=== PATIENT | female | born 1960 | race Caucasian/White ===

== ENCOUNTER 2019-02-08 15:13 | Inpatient (IN) | payer BC, OTHER ==
[~2019-02-08] VITALS: Ht 167.6 cm; Wt 83.0 kg
[~2019-02-08 15:13] MED LIST: AMBIEN5 MG PO; AMLODIPINE BESYL5 MG PO; ATENOLOL50 MG; ATENOLOL50 MG PO; DEXILANT60 MG PO; LIVALO1 MG; METFORMIN HCL500 M2 PO; NORVASC5 MG PO
[2019-02-08] MEDS ORDERED: ONDANSETRON HCL INJ 2MG/ML 2ML 2 MG/ML VIAL IV ONE ×2 (15:28→16:09)
[2019-02-08] MEDS ORDERED: KETOROLAC TROMETHAMINE 30 MG/ML VIAL IV ONE (15:28)
[2019-02-08] MEDS ORDERED: ACETAMINOPHEN 325 MG TAB PO ONE (15:28)
[2019-02-08] MEDS ORDERED: SODIUM CHLORIDE 0.9% 1000ML 1,000 ML IV STA (15:28)
[2019-02-08 15:44] LABS: BASOPHILS # (AUTO) 0.1 (0.0-0.1); BASOPHILS % 0.4 % (0.0-1.0); EOSINOPHILS # (AUTO) 0.1 (0.0-0.4); EOSINOPHILS % 0.3 % (0.0-6.0); HEMATOCRIT 42.6 % (34.2-44.1); LYMPHOCYTES # (AUTO) 1.5 (1.0-3.2); LYMPHOCYTES % 8.7 % (18.0-39.1); MEAN CORPUSCULAR HEMOGLOBIN 30.2 pg (28-32); MEAN CORPUSCULAR HGB CONC 32.9 g/dL (31-35); MEAN CORPUSCULAR VOLUME 91.8 fL (81-99); MONOCYTES # (AUTO) 2.2 (0.2-0.8); MONOCYTES % 12.8 % (4.4-11.3); NEUTROPHILS # (AUTO) 13.4 (2.1-6.9); NEUTROPHILS % 77.1 % (38.7-80.0); PLATELET COUNT 287 x10e3/uL (140-360); RED BLOOD COUNT 4.64 x10e6/uL (3.6-5.1); RED CELL DISTRIBUTION WIDTH 13.4 % (11.7-14.4)
[2019-02-08] MEDS ORDERED: LOSARTAN POTASS25 MG (15:52)
[2019-02-08] MEDS ORDERED: JANUVIA100 MG (15:52)
[2019-02-08 15:58] LABS: CLARITY,URINE SL CLOUDY (CLEAR); COLOR,URINE YELLOW (YELLOW); LEUKOCYTE ESTERASE ,URINE 2+ (NEGATIVE); NITRITE,URINE POSITIVE (NEGATIVE); PROTEIN,URINE DIPSTICK 1+ (NEGATIVE)
[2019-02-08 15:59] LABS: BACTERIA,URINE MODERATE /HPF; BILIRUBIN,URINE NEGATIVE (NEGATIVE); EPITHELIAL CELLS,URINE MODERATE /LPF; KETONES,URINE NEGATIVE (NEGATIVE); URINE UROBILINOGEN 0.2 mg/dL (0.2 - 1); WBC,URINE (MAN) 21-50 /HPF (0-5)
[2019-02-08] MEDS ORDERED: CEFTRIAXONE SOD 1 GM/NS 50 ML 50 ML IV ONE (16:00)
[2019-02-08 16:06] LABS: ALANINE AMINOTRANSFERASE 29 IU/L (0-55); ALBUMIN 4.1 g/dL (3.5-5.0); ALKALINE PHOSPHATASE 104 IU/L (40-150); ANION GAP 15.3 mmol/L (8-16); BLOOD UREA NITROGEN 15 mg/dL (7-26); BUN/CREATININE RATIO 18 (6-25); CALCIUM 9.5 mg/dL (8.4-10.2); CARBON DIOXIDE 26 mmol/L (22-29); CHLORIDE 101 mmol/L (98-107); CREATININE, SERUM 0.85 mg/dL (0.57-1.11); EST GLOMERULAR FILTRATION RATE > 60 ML/MIN (60-); GLUCOSE 150 mg/dL (74-118); POTASSIUM 3.3 mmol/L (3.5-5.1); SODIUM 139 mmol/L (136-145)
[2019-02-08] MEDS ORDERED: MORPHINE SULFATE INJ 4 MG/ML INJ 1ML IV ONE (16:09)
[2019-02-08] MEDS ORDERED: MORPHINE SULFATE 2 MG/ML SYR 1ML IV PRN (16:15)
[2019-02-08] MEDS ORDERED: ACETAMINOPHEN 325 MG TAB PO PRN (17:00)
[2019-02-08] MEDS ORDERED: POTASSIUM CHLORIDE 20 MEQ TAB CR PO NR (17:00)
[2019-02-08 17:13] VITALS: BP 142/61
--- NOTE | 2019-02-08 17:22 | NUR ---
Recvd patient from ER. AAOx3, not in any distress, up in bed, call light in reach
--- NOTE | 2019-02-08 17:30 | Diagnostic Imaging Report ---
CT of the abdomen and pelvis, without contrast, 02/08/2019. History: Left flank pain. Comparison: None available. Technique: Multidetector CT scanning of the abdomen and pelvis was performed from the level of the lung bases to the inferior pubic rami without intravenous or oral contrast. Coronal and sagittal multiplanar reformations were obtained. RADIATION DOSE: Total DLP: 593 mGy*cm Dose modulation, iterative reconstruction, and/or weight based adjustment of the mA/kV was utilized to reduce the radiation dose to as low as reasonably achievable. Discussion: Examination is limited without contrast. Lung bases: There is bibasilar dependent atelectasis. Abdomen: Multiple small 2 to 6 mm calcifications are present in both kidneys. There is no hydronephrosis on the right. There is mild left hydronephrosis and dilatation of the ureter down to the pelvis where a 6 mm stone is present in the distal left ureter. Multiple oval hypodense lesions are present within both kidneys, most measuring water density, with a 4.9 cm exophytic lesion arising from the lateral aspect of the left kidney which measures 16 Hounsfield units in density. There is diffuse low-density of the liver with focal fatty sparing adjacent to the gallbladder. The gallbladder, biliary tree, spleen, pancreas, and adrenal glands are unremarkable. The abdominal aorta is within normal limits. There is no bowel dilatation. Appendectomy clips are present. There is no evidence of adenopathy or free fluid. Pelvis: The bladder is unremarkable. The uterus and adnexa are absent. There is no evidence of free fluid or adenopathy. Bones and soft tissues: Degenerative changes are present throughout the lumbar spine without evidence of lytic or sclerotic lesion. IMPRESSION: 1. 6 mm distal left ureteral stone causing mild left hydronephrosis. Multiple additional small stones are present in both kidneys. No obstruction seen on the right. 2. Multiple bilateral renal cysts with a large exophytic hyperdense cyst on the left. This may be further evaluated with renal ultrasound. 3. Diffuse fatty infiltration of the liver. 4. Status post hysterectomy. Signed by: Issa Mccord on 02/08/2019 5:27 PM
[2019-02-08] MEDS ORDERED: PROPOFOL IV EMULSION 10 MG/ML 20 ML VIAL ONE (17:54)
[2019-02-08] MEDS ORDERED: ONDANSETRON HCL INJ 2MG/ML 2ML 2 MG/ML VIAL ONE (17:54)
[2019-02-08] MEDS ORDERED: SEVOFLURANE INHAL SOLN 250 ML PEN BTL ONE (17:54)
[2019-02-08] MEDS ORDERED: KETOROLAC TROMETHAMINE 30 MG/ML VIAL ONE (17:54)
[2019-02-08] MEDS ORDERED: LIDOCAINE HCL 2% LOCAL INJ 5 ML SDV VIAL INJ ONE (17:54)
[2019-02-08] MEDS ORDERED: DEXAMETHASONE SOD PHOS INJ 4 MG/ML VIAL ONE (17:54)
[2019-02-08] MEDS ORDERED: ACETAMINOPHEN 1000 MG/100 ML IV ONE (17:54)
[2019-02-08 18:51] VITALS: BP 142/61
[2019-02-08] MEDS ORDERED: SODIUM CHLORIDE 0.9% 1000ML 1,000 ML ONE (19:01)
--- NOTE | 2019-02-08 19:05 | NUR ---
RECEIVED PATIENT. PATIENT IS AAOX3, PATIENT IS RESTING IN BED. RESPIRATIONS EVEN AND UNLABORED. NO ACUTE DISTRESS NOTED AT THIS TIME. CALL LIGHT WITHIN REACH. INSTRUCT TO CALL FOR ASSISTANCE. BED LOW/LOCKED. SIDE RAILS UPX2. CONTINUE TO MONITOR CLOSELY.
--- NOTE | 2019-02-08 19:09 | NUR ---
Spoke with Dr Yarelis Cedillo ,did read back CT Result, new order recvd to keep patient NPO after mid night, IV fluids NS @100, Urine culture.
[2019-02-08] MEDS: SODIUM CHLORIDE 0.9% 1000ML 1,000 ML IV SCH (19:22)
[2019-02-08 20:00] VITALS: BP 120/67
[2019-02-08] MEDS: CIPROFLOXACIN 400 MG/D5W 200ML 200 ML IV SCH (21:06)
--- NOTE | 2019-02-08 21:15 | NUR ---
DR CRUZ SEE PATIENT AT BED SIDE. NEW ORDER TO OBTAIN CONSENT FORM FOR CYSTOSCOPY RECEIVED.
[2019-02-08] MEDS: MORPHINE SULFATE INJ 4 MG/ML INJ 1ML IV PRN (21:42)
[2019-02-08] MEDS: ONDANSETRON HCL INJ 2MG/ML 2ML 2 MG/ML VIAL IV PRN (21:42)
[2019-02-09] VITALS (7 sets, daily range): BP systolic 102–123; BP diastolic 50–61
--- NOTE | 2019-02-09 04:02 | Consultation ---
DATE OF CONSULTATION: REASON FOR CONSULTATION: Left flank pain, lymphocytosis, UTI, pyelonephritis. HISTORY: A 58-year-old female, well known to me over the years. 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 She also has had urinary tract infections in the past and has had pyelonephritis. She states that for the last three weeks she has had some mild dysuria and frequency. She states that the pain started approximately three days ago, finally became severe enough to go to my office. In my office, the urine was checked. It was noted that she had infection. Since she had a fever and pain, she came to the emergency room for a CT scan, which showed a 6 mm stone in the distal left ureter with hydronephrosis. We noted that her urine is infected. Urine culture was obtained in my office. The patient is here with leukocytosis and fever. She has an obstructive stone. Therefore, proper drainage is indicated. We will arrange to have placement of a double-J tomorrow if time permits. I have discussed this with the patient. The patient is agreeable. We will proceed with placement of a left double-J tomorrow. MD JARRED Zhou/[place] /[id number]
[2019-02-09] MEDS: ONDANSETRON HCL INJ 2MG/ML 2ML 2 MG/ML VIAL IV PRN ×2 (04:23→10:06)
[2019-02-09] MEDS: MORPHINE SULFATE INJ 4 MG/ML INJ 1ML IV PRN ×2 (04:23→10:06)
[2019-02-09] MEDS: SODIUM CHLORIDE 0.9% 1000ML 1,000 ML IV SCH (05:17)
[2019-02-09 05:32] LABS: BASOPHILS # (AUTO) 0.1 (0.0-0.1); BASOPHILS % 0.3 % (0.0-1.0); EOSINOPHILS % 0.1 % (0.0-6.0); HEMATOCRIT 37.8 % (34.2-44.1); HEMOGLOBIN 12.1 g/dL (12.0-16.0); LYMPHOCYTES % 5.3 % (18.0-39.1); MEAN CORPUSCULAR HEMOGLOBIN 29.9 pg (28-32); MEAN CORPUSCULAR VOLUME 93.3 fL (81-99); MONOCYTES # (AUTO) 2.2 (0.2-0.8); MONOCYTES % 11.4 % (4.4-11.3); NEUTROPHILS # (AUTO) 15.4 (2.1-6.9); PLATELET COUNT 224 x10e3/uL (140-360); RED BLOOD COUNT 4.05 x10e6/uL (3.6-5.1); RED CELL DISTRIBUTION WIDTH 13.5 % (11.7-14.4)
[2019-02-09 05:48] LABS: ANION GAP 13.8 mmol/L (8-16); BLOOD UREA NITROGEN 16 mg/dL (7-26); BUN/CREATININE RATIO 20 (6-25); CALCIUM 8.4 mg/dL (8.4-10.2); CARBON DIOXIDE 21 mmol/L (22-29); CHLORIDE 108 mmol/L (98-107); EST GLOMERULAR FILTRATION RATE > 60 ML/MIN (60-); GLUCOSE 175 mg/dL (74-118); POTASSIUM 3.8 mmol/L (3.5-5.1); SODIUM 139 mmol/L (136-145)
[2019-02-09] MEDS: CIPROFLOXACIN 400 MG/D5W 200ML 200 ML IV SCH (06:00)
--- NOTE | 2019-02-09 07:08 | NUR ---
Received patient lying in bed with eyes closed. Respiration even and unlabored without Sob. Call light in reach. Patient is currently NPO in preparation for surgery today.
[2019-02-09] MEDS ORDERED: CEFTRIAXONE SOD 1 GM VIAL IV SCH (09:15)
[2019-02-09] MEDS ORDERED: DEXTROSE 50% SYRINGE 50 ML IV PRN (09:15)
[2019-02-09] MEDS ORDERED: CEFTRIAXONE SOD 1 GM/NS 50 ML 50 ML IV SCH (10:30)
--- NOTE | 2019-02-09 11:22 | NUR ---
Patient transported for surgery at this time.
[2019-02-09] MEDS ORDERED: IOPAMIDOL 300MG/ML 50ML INFUS..BTL IV ONE (11:29)
[2019-02-09] MEDS ORDERED: INSULIN LISPRO 100 UNIT/1 ML 3ML VIAL SQ SCH (11:30)
--- NOTE | 2019-02-09 13:08 | Diagnostic Imaging Report ---
Fluoroscopy. History: Intraoperative. Retrograde myelograms with left stent placement Findings: Radiologist was not present for the exam. Fluoroscopy was not performed by the undersigned. Fluoroscopy Time: 16 seconds Reference Air Kerma (Ka, r): 4.2 mGy. Retrograde injection of the right ureter with filling of the entire ureter and renal pelvis. No filling defects are identified. Initial retrograde injection of contrast within the left ureter demonstrates a filling defect compatible with a stone. There is an placement of double-J ureteral stent. Filling defects in the left distal ureter at the end of the procedure may be secondary to small stone fragments versus air bubbles. IMPRESSION: Bilateral retrograde pyelograms with left ureteral stent placement. Please see operative report for details. Signed by: Sergio Mustafa MD on 02/09/2019 1:05 PM
--- NOTE | 2019-02-09 13:10 | NUR ---
Patient is back from surgery. Awake, lying in bed. Respiration even and unlabored without SOB. in 2L via NC at this time.
--- NOTE | 2019-02-09 17:46 | NUR ---
Spoke with Dr. Ochoa. States okay to discharge patient to home. Continue home medication.
--- NOTE | 2019-02-09 17:50 | NUR ---
Discharge education given. Verbalized understanding. Prescription given.
--- NOTE | 2019-02-09 17:58 | NUR ---
PIV to right arm discontinued, catheter tip intact, no bleeding noted.
--- NOTE | 2019-02-09 18:28 | NUR ---
Patient is transported via wheelchair to private vehicle. All personal belongings are taken by the patient.
--- NOTE | 2019-02-09 18:48 | Operative Report ---
DATE OF PROCEDURE: 02/09/2019 SURGEON: Chepe Cedillo MD PREOPERATIVE DIAGNOSES: Left distal ureteral calculi with hydronephrosis and urinary tract infection. POSTOPERATIVE DIAGNOSES: Left distal ureteral calculi with hydronephrosis and urinary tract infection. OPERATION PERFORMED: Cystoscopy, retrograde stone manipulation, and placement of left double-J. ANESTHESIOLOGIST: Staff. ANESTHESIA: General. FINDINGS: The patient has a grade 2 cystocele. Urethral meatus is normal. Bladder line is normal. The ureteral orifices are pulled down by the cystocele. Retrograde pyelogram 6 mm to 7 mm stone at the ureterovesical junction causing ureteronephrosis. PROCEDURE IN DETAIL: With the patient under satisfactory general anesthesia, the patient was placed in the supine position on the operating room table. Legs were placed on stirrups. Genitalia was then prepped with Betadine soap and solution and draped in usual manner. A #22-British rigid cystourethroscope was then passed per urethra into the bladder and the bladder was inspected. The ureteral orifice on both sides was normal. Retrograde pyelogram was done by injecting contrast media through a #8 ureteral catheter on the right side and left side. On the left side, the stone was visualized as well as hydroureteronephrosis. At this point, I introduced a guidewire into the ureteral orifice. It would not go up. I manipulated the stone with the open-ended catheter. The stone then removed and I was able to pass the guidewire all the way up and passing the open-ended catheter after that. I removed the open-ended catheter, placed a #6-British [place] universal double-J all the way up to the kidney, coiled in the renal pelvis, then removed the guidewire and coiled it in the bladder. Then, I injected contrast media through it. There was no extravasation. Then, I advanced the sleeve disengaging the double-J and leave the double-J in place. At this point, the patient was taken to the recovery room in satisfactory condition. DISCHARGE INSTRUCTIONS: I have spoken with the patient about being discharged. I wrote for a prescription for Keflex as well as tramadol for pain. She is to call me Tuesday. We will then arrange for a return to the operating to room to remove the stone after the urine culture results are back. The patient was in my office prior to being admitted and I got a culture at that time. Also, it is stated that the patient had a fever and that she had upper respiratory infection 2 weeks prior to this episode and took some antibiotics. We discussed what that meant as far as the colony count and antibiotic sensitivity. MD BRANDIN ZhouG/MODL /[id number] cc: Dwayne Ochoa MD
[2019-02-09] MEDS ORDERED: FENTANYL CITRATE/PF 100MCG/2 ML INJ ONE (21:00)
[2019-02-09] MEDS ORDERED: MIDAZOLAM HCL 2 MG/2 ML VIAL ONE (21:00)
[2019-02-10] MEDS ORDERED: ATENOLOL 50 MG TAB PO SCH (09:00)
[2019-02-10] MEDS ORDERED: PANTOPRAZOLE SOD 40 MG TABEC PO SCH (09:00)
== END 2019-02-09 18:27 | disposition home or self-care (01) | DRG 661 ==
LOC: ER 15:13 → ERHOLD 16:09 → MED/SURG3 17:00
PROVIDERS: ADMIT Internal Medicine; ATTEND Internal Medicine
PROC: 0T778DZ Dilation of Left Ureter with Intraluminal Device, Via Natural or Artificial Opening Endoscopic (ICD-10-PCS; 2019-02-09)
PROC: 0TC78ZZ Extirpation of Matter from Left Ureter, Via Natural or Artificial Opening Endoscopic (ICD-10-PCS; 2019-02-09)
PROC: BT141ZZ Fluoroscopy of Kidneys, Ureters and Bladder using Low Osmolar Contrast (ICD-10-PCS; principal; 2019-02-09 12:11)
DX: N13.6 Pyonephrosis (principal); E11.9 Type 2 diabetes mellitus without complications; I10 Essential (primary) hypertension; K21.9 Gastro-esophageal reflux disease without esophagitis; Z88.8 Allergy status to other drugs, medicaments and biological substances; Z88.5 Allergy status to narcotic agent; Z79.84 Long term (current) use of oral hypoglycemic drugs
CPT/HCPCS: 36415; 74176; 74420; 80048; 80053; 81001; 82948; 83605; 85025; 87040; 87086; 87186; 87400; 99284; C1758; C2625; J0696; J1100; J1885; J2001; J2250; J2270; J2405; J3010; J7030

== ENCOUNTER → 2020-06-26 | Outpatient (CLI) | payer OTHER ==
[~2020-06-26] MED LIST changes: +JANUVIA100 MG; +LOSARTAN POTASS25 MG
== END ==
LOC: CT 14:36
PROVIDERS: ATTEND Urology
DX: R31.0 Gross hematuria (principal)
CPT/HCPCS: 74176

== ENCOUNTER → 2020-07-18 | Outpatient (CLI) | payer OTHER | LOC: US 08:25 | PROVIDERS: ATTEND Urology | DX: N20.0 Calculus of kidney (principal) | CPT/HCPCS: 76770; 76857 ==